=== PATIENT | male | born 1980 | race Caucasian/White ===

== ENCOUNTER 2021-11-22 16:56 | Outpatient (REF) | payer OTHER, SELFPAY ==
--- NOTE | ~2021-11-22 | XR_ITS ---
EXAMINATION: XR ANKLE, LEFT CLINICAL INFORMATION: Pain in left ankle. COMPARISON: None TECHNIQUE: AP, lateral, and mortise views of the left ankle. FINDINGS: Soft tissue swelling around ankle. There is no fracture. No dislocation. Joint spaces are preserved. XR/XR ankle LT 2V IMPRESSION: Soft tissue swelling around the ankle. There is no acute osseous abnormality.
== END 2021-11-22 16:57 | disposition home or self-care (01) ==
LOC: HO.XRAY 16:56
PROVIDERS: Visit Provider Family Medicine
DX: M25.572 Pain in left ankle and joints of left foot (principal)
CPT/HCPCS: 73600